=== PATIENT | male | born 1950 | race Caucasian/White ===

== ENCOUNTER 2019-06-12 19:33 | Emergency (ER) | payer MEDICARE, OTHER ==
[~2019-06-12] VITALS: Ht 172.7 cm; Wt 63.5 kg
[2019-06-12] MEDS ORDERED: Albuterol 90mcg Inhaler 8gm INH STA (19:42)
[2019-06-12] MEDS ORDERED: Metoprolol Tartrate 5mg/5ml Inj IVP STA ×2 (19:55→21:06)
--- NOTE | 2019-06-12 19:55 | Emergency Room Report ---
History of Present Illness General Chief Complaint: Lower Back Pain or Injury Source: Patient (Je Malik MD) Present Illness HPI Patient transported via EMS. Patient presents with several complaints. The primary is shortness of breath. The patient is a smoker and has COPD. Apparently he was seen at the [facility] 06/09 and had + influenza test and negative Covid. He continues with chest pain, abdominal pain, vomited this AM and has been having diarrhea. Total body aches. EMS picked up patient near [facility]. [place] show +RSV, not influenza. Risk factors for cardiac disease: Hypertension, diabetes and smoking. Patient has a history of atrial fibrillation. Patient on Pradaxa. Patient denies psychiatric illness. No fevers, chills, sore throat, chest pain, palpitations, dysuria, joint pain, rashes, visual changes, dizziness, headache. COVID-19 risk:Contact w/high r: No COVID-19 risk:Travel to [facility]: No Has patient experienced [facility]: No (Je Malik MD) Allergies: Coded Allergies: No Known Allergies (Unverified , 06/12/19) Patient History Past Medical History: see triage record, old chart reviewed Social History: Reports: smoking Social History Narrative address in [place] Reviewed Nursing Documentation: PMH: Agreed; PSxH: Agreed (Je Malik MD) Nursing Documentation-PMH Hx Hypertension: Yes - afib Hx Diabetes: Yes (Je Malik MD) Physical Exam Vital Signs Date Time Temp Pulse Resp B/P (MAP) Pulse Ox O2 Delivery O2 Flow Rate FiO2 06/12/19 19:27 96.6 110 18 150/100 (117) 100 Room Air (Je Malik MD) Medical Decision Making Diagnostic Impression: Primary Impression: Chest pain Qualified Codes: R07.89 - Other chest pain Additional Impressions: Atrial fibrillation with RVR COPD exacerbation Elevated lactic acid level RSV (acute bronchiolitis due to respiratory syncytial virus) Delirium Acute diarrhea ER Course Patient presents with shortness of breath, chest pain, vomiting and diarrhea after testing positive for influenza. Differential includes acute myocardial infarction, pneumonia, exacerbation of COPD, influenza, gastroenteritis amongst others. Patient evaluated with EKG, chest x-ray and labs. Patient treated with inhaled albuterol by metered-dose inhaler. EKG with atrial fibrillation with rapid ventricular response rate of 124 without hyperacute changes. Attempting to confirm Influenza and COVID results from [facility]. Records obtained - negative for above but + for RSV. Patient delusional - pulled IV twice. Sedation and restraints. CO2 monitor. Signed out to Dr. Cast. Laboratory Tests Test 06/12/19 20:00 White Blood Count 11.3 K/UL (4.8-10.8) H Red Blood Count 4.66 M/UL (4.70-6.10) L Hemoglobin 12.8 G/DL (14.2-18.0) L Hematocrit 40.1 % (42.0-52.0) L Mean Corpuscular Volume 86 FL (80-99) Mean Corpuscular Hemoglobin 27.5 PG (27.0-31.0) Mean Corpuscular Hemoglobin Concent 31.9 G/DL (32.0-36.0) L Red Cell Distribution Width 17.1 % (11.6-14.8) H Platelet Count 561 K/UL (150-450) H Mean Platelet Volume 5.6 FL (6.5-10.1) L Neutrophils (%) (Auto) 77.3 % (45.0-75.0) H Lymphocytes (%) (Auto) 13.2 % (20.0-45.0) L Monocytes (%) (Auto) 7.7 % (1.0-10.0) Eosinophils (%) (Auto) 0.1 % (0.0-3.0) Basophils (%) (Auto) 1.8 % (0.0-2.0) Prothrombin Time 11.1 SEC (9.30-11.50) Prothrombin Time INR 1.0 (0.9-1.1) Activated Partial Thromboplast Time 29 SEC (23-33) Urine Color Pale yellow Urine Appearance Clear Urine pH 7 (4.5-8.0) Urine Specific [place] 1.010 (1.005-1.035) Urine Protein Negative (NEGATIVE) Urine Glucose (UA) Negative (NEGATIVE) Urine Ketones Negative (NEGATIVE) Urine Blood Negative (NEGATIVE) Urine Nitrite Negative (NEGATIVE) Urine Bilirubin Negative (NEGATIVE) Urine Urobilinogen Normal MG/DL (0.0-1.0) Urine Leukocyte Esterase Negative (NEGATIVE) Sodium Level 144 MMOL/L (136-145) Potassium Level 3.7 MMOL/L (3.5-5.1) Chloride Level 105 MMOL/L (98-107) Carbon Dioxide Level 26 MMOL/L (21-32) Anion Gap 13 mmol/L (5-15) Blood Urea Nitrogen 23 mg/dL (7-18) H Creatinine 1.2 MG/DL (0.55-1.30) Estimated Glomerular Filtration Rate > 60 mL/min (>60) Glucose Level 117 MG/DL (74-106) H Lactic Acid Level 2.20 mmol/L (0.4-2.0) H Calcium Level 9.8 MG/DL (8.5-10.1) Total Bilirubin 0.8 MG/DL (0.2-1.0) Aspartate Amino Transferase (AST) 30 U/L (15-37) Alanine Aminotransferase (ALT) 12 U/L (12-78) Alkaline Phosphatase 88 U/L (46-116) Total Creatine Kinase 743 U/L (26-308) H Troponin I 0.009 ng/mL (0.000-0.056) Pro-B-Type Natriuretic Peptide 1962 pg/mL (0-125) H Total Protein 7.4 G/DL (6.4-8.2) Albumin 4.3 G/DL (3.4-5.0) Globulin 3.1 g/dL Albumin/Globulin Ratio 1.4 (1.0-2.7) (Je Malik MD) ER Course This patient was signed out to me. He was brought in with chief complaint of chest pain not feeling well and shortness of breath. Patient is a [place] patient. He was seen at the [place] to [place] days ago. He is positive for RSV. Negative for coronavirus and influenza. Here he is becoming more more agitated. He had to be restrained. His heart rate was elevated. Appear to be A. fib with RVR. Looking at the records from the [place]. He has a history of A. fib and taking carvedilol. Is also history of CHF and taking Lasix. He is also on anticoagulation with Pradaxa. He also has a history of homelessness and cocaine abuse. His agitation and delirium may be secondary to drug abuse and or sundowning. He does have a history of CHF and A. fib. Also history of COPD. Patient will require admission for monitoring and further work-up. I discussed the case with Dr. Maurice at the [place] who accepted the patient for transfer. Patient is hemodynamically stable for transfer. (Sami Cast MD) EKG Diagnostic Results Rate: tachycardiac Rhythm: other - Atrial fibrillation ST Segments: no acute changes ASA given to the pt in ED: Yes (Je Malik MD) Rhythm Strip Diag. Results EP Interpretation: yes Rhythm: no PVC's, no ectopy, other - Atrial fibrillation (Je Malik MD) Chest X-Ray Diagnostic Results Chest X-Ray Diagnostic Results : Chest X-Ray Ordered: Yes # of Views/Limited/Complete: 1 View Indication: Other EP Interpretation: Yes Interpretation: no consolidation, no effusion, no pneumothorax, other - copd Impression: Other Electronically Signed by: Electronically signed by Je Malik MD (Je Malik MD) Last Vital Signs Date Time Temp Pulse Resp B/P (MAP) Pulse Ox O2 Delivery O2 Flow Rate FiO2 06/13/19 01:00 97.3 123 25 170/89 99 Room Air 1.0 24 Status: improved (Je Malik MD) Status: improved (Sami Cast MD) Disposition: XFER SHT-TRM HOSP Condition: Stable Je Malik MD Jun 12, 2019 19:55 Sami Cast MD Jun 13, 2019 00:47
[2019-06-12 20:15] LABS: BASOPHILS % (AUTO) 1.8 % (0.0-2.0); EOSINOPHILS % (AUTO) 0.1 % (0.0-3.0); HEMATOCRIT 40.1 % (42.0-52.0); HEMOGLOBIN 12.8 G/DL (14.2-18.0); LYMPHOCYTES % (AUTO) 13.2 % (20.0-45.0); MEAN CORPUSCULAR VOLUME 86 FL (80-99); MONOCYTES % (AUTO) 7.7 % (1.0-10.0); NEUTROPHILS % (AUTO) 77.3 % (45.0-75.0); PLATELET COUNT 561 K/UL (150-450); RED BLOOD COUNT 4.66 M/UL (4.70-6.10); RED CELL DISTRIBUTION WIDTH 17.1 % (11.6-14.8); WHITE BLOOD COUNT 11.3 K/UL (4.8-10.8)
[2019-06-12 20:19] LABS: APPEARANCE,URINE CLEAR; BILIRUBIN, URINE NEGATIVE (NEGATIVE); COLOR,URINE PALE YELLOW; GLUCOSE, URINE (UA) NEGATIVE (NEGATIVE); KETONES,URINE NEGATIVE (NEGATIVE); LEUKOCYTE ESTERASE ,URINE NEGATIVE (NEGATIVE); NITRITE,URINE NEGATIVE (NEGATIVE); PH,URINE 7 (4.5-8.0); PROTEIN,URINE NEGATIVE (NEGATIVE); UROBILINOGEN,URINE NORMAL MG/DL (0.0-1.0)
[2019-06-12 20:20] VITALS: BP 142/77
--- NOTE | 2019-06-12 20:31 | Diagnostic Imaging Report ---
EXAM: XR Chest, 1 View CLINICAL HISTORY: DYSPNEA TECHNIQUE: Frontal view of the chest. COMPARISON: No relevant prior studies available. FINDINGS: Lungs: Unremarkable. No consolidation. Pleural space: No pleural effusion. No pneumothorax. Heart: Unremarkable. No cardiomegaly. IMPRESSION: No acute cardiopulmonary abnormality.
[2019-06-12 20:34] LABS: ALANINE AMINOTRANSFERASE 12 U/L (12-78); ALBUMIN 4.3 G/DL (3.4-5.0); ALBUMIN/GLOBULIN RATIO 1.4 (1.0-2.7); ALKALINE PHOSPHATASE 88 U/L (46-116); ANION GAP 13 mmol/L (5-15); ASPARTATE AMINO TRANSFERASE 30 U/L (15-37); BILIRUBIN,TOTAL 0.8 MG/DL (0.2-1.0); BLOOD UREA NITROGEN 23 mg/dL (7-18); CALCIUM 9.8 MG/DL (8.5-10.1); CARBON DIOXIDE 26 MMOL/L (21-32); CHLORIDE 105 MMOL/L (98-107); CREATINE KINASE 743 U/L (26-308); CREATININE 1.2 MG/DL (0.55-1.30); POTASSIUM 3.7 MMOL/L (3.5-5.1); SODIUM 144 MMOL/L (136-145)
[2019-06-12] MEDS ORDERED: Solu-MEDROL 125mg Inj IVP ONE (21:15)
[2019-06-12] MEDS ORDERED: LORazepam Inj 2mg/ml 1ml IV ONE ×2 (21:15→23:00)
[2019-06-12 22:30] VITALS: BP 143/75
[2019-06-12] MEDS ORDERED: DiphenhydrAMINE 50mg/ml Inj IM ONE (22:30)
[2019-06-12] MEDS ORDERED: Haloperidol 5mg/ml Inj IM ONE ×2 (22:30→23:00)
[2019-06-12] MEDS ORDERED: ACETAMINOPHEN120 MG ORAL (22:37)
[2019-06-12] MEDS ORDERED: ATORVASTATIN CA40 MG ORAL (22:38)
[2019-06-12] MEDS ORDERED: ALBUTEROL2.5 MG/3 M INH (22:38)
[2019-06-12] MEDS ORDERED: CARVEDILOL6.25 MG ORAL (22:39)
[2019-06-12] MEDS ORDERED: CHOLECALCIFEROL1 G1 MC (22:40)
[2019-06-12] MEDS ORDERED: DICLOFENAC SODI25 MG ORAL (22:41)
[2019-06-12] MEDS ORDERED: FUROSEMIDE40 MG ORAL (22:41)
[2019-06-12] MEDS ORDERED: GABAPENTIN300 MG ORAL (22:42)
[2019-06-12] MEDS ORDERED: OMEPRAZOLE20 M2 ORAL (22:43)
[2019-06-12] MEDS ORDERED: XARELTO10 MG ORAL (22:45)
[2019-06-12] MEDS ORDERED: PREDNISOLO15 MG/5 M1 ORAL (22:47)
[2019-06-13] MEDS: Metoprolol Tartrate 5mg/5ml Inj IVP SCH ×2 (00:59→03:49)
[2019-06-13 01:00] VITALS: BP 170/89
[2019-06-13] MEDS ORDERED: LORazepam Inj 2mg/ml 1ml IV ONE (04:00)
[2019-06-13 04:12] VITALS: BP 157/107
[2019-06-13 04:30] VITALS: BP 157/107
== END 2019-06-13 04:30 | disposition short-term general hospital (02) ==
LOC: EDBD 19:33 → EMR 20:00
DX: R07.89 Other chest pain (principal); I48.20 Chronic atrial fibrillation, unspecified; J44.1 Chronic obstructive pulmonary disease with (acute) exacerbation; R79.89 Other specified abnormal findings of blood chemistry; B97.4 Respiratory syncytial virus as the cause of diseases classified elsewhere; R41.0 Disorientation, unspecified; R19.7 Diarrhea, unspecified; E11.9 Type 2 diabetes mellitus without complications; I10 Essential (primary) hypertension; F17.200 Nicotine dependence, unspecified, uncomplicated; Z79.899 Other long term (current) drug therapy; R00.0 Tachycardia, unspecified
CPT/HCPCS: 36415; 71045; 80053; 80307; 81003; 82550; 83605; 83880; 84484; 85025; 85610; 85730; 93005; 96361; 96372; 96374; 96375; 96376; 99285; J1200; J1630; J2930; J7030